=== PATIENT | male | born 1975 | race Caucasian/White ===

== ENCOUNTER 2018-06-08 20:14 | Emergency (ER) | payer OTHER ==
[~2018-06-08] VITALS: Ht 182.9 cm; Wt 83.9 kg
[2018-06-08 20:45] VITALS: BP 157/95
--- NOTE | 2018-06-08 20:46 | NUR ---
ED Nurse Note: Patient presents to ED c/o bleeding in left ear for 3 hours. Patient reports bleeding started after headphone and Q-tip use. Patient AOx4, VSS, ambulatory with steady gait, no s/s of acute distress noted at this time. patient seen by NAYED at bedside.
--- NOTE | 2018-06-08 20:46 | Emergency Room Report ---
History of Present Illness General Chief Complaint: Earache Source: Patient Present Illness HPI Patient uses ear buds at work. When he removed them from the left ear there is some blood. He denies any pain or change in his hearing. He tried using a Q- tip and seem like the bleeding continued. Denies fevers, upper respiratory symptoms including cough, sore throat or ear pain. There is no change in hearing since this happened. There is no vertigo. No headache, nausea, vomiting or rashes. Allergies: Coded Allergies: No Known Allergies (Unverified , 06/08/18) Patient History Past Medical History: see triage record Social History: Reports: smoking Social History Narrative Uses ear buds in his job Reviewed Nursing Documentation: PMH: Agreed; PSxH: Agreed Nursing Documentation-PMH Past Medical History: No Stated History Review of Systems Constitutional: Reports: see HPI ENT: Reports: see HPI Respiratory: Reports: see HPI Gastrointestinal: Reports: see HPI Skin: Reports: see HPI Neurological: Reports: see HPI Hematologic/Lymphatic: Reports: see HPI Physical Exam Vital Signs Date Time Temp Pulse Resp B/P (MAP) Pulse Ox O2 Delivery O2 Flow Rate FiO2 06/08/18 20:28 98.2 58 18 157/95 98 Room Air Sp02 EP Interpretation: reviewed, normal General Appearance: well appearing, no apparent distress, GCS 15 Head: normocephalic, atraumatic Eyes: bilateral eye normal inspection, bilateral eye PERRL ENT: normal pharynx, moist mucus membranes, other - No pinna tenderness, canal is normal aside from having some blood and also the TM on the side is normal. Neck: full range of motion, supple Respiratory: lungs clear, no respiratory distress, speaking full sentences Cardiovascular #1: regular rate, rhythm Cardiovascular #2: 2+ radial (R) Gastrointestinal: normal inspection Musculoskeletal: digits/nails normal, gait/station normal Neurologic: alert, oriented x3, normal gait, grossly normal Psychiatric: mood/affect normal Skin: no rash Medical Decision Making Diagnostic Impression: Primary Impression: Ear canal abrasion Qualified Codes: S00.412A - Abrasion of left ear, initial encounter ER Course Patient presents with bleeding from the left ear canal after cleaning with a Q- tip. Differential includes perforation, otitis externa, ear canal trauma amongst others. There is no change in the hearing and he has no pain. This is consistent with ear canal trauma. Antibiotics are indicated topically. Discussed the treatment plan with patient and he understands. Patient is stable for outpatient observation and treatment. Last Vital Signs Date Time Temp Pulse Resp B/P (MAP) Pulse Ox O2 Delivery O2 Flow Rate FiO2 06/08/18 20:54 98.2 58 18 157/95 98 Room Air Status: unchanged Disposition: HOME, SELF-CARE Condition: Stable Scripts Neomycin/Polymyxin B Sulf/Hc* (CORTISPORIN EAR SOLUTION*) 10 Ml Solution 3 DROP LEFT EAR TID, #10 ML 0 Refills Prov: Bob Larose MD 06/08/18 Bob Larose MD Jun 08, 2018 20:46
[2018-06-08] MEDS ORDERED: CORTISPORIN EAR10 ML LEFT EAR (20:48)
[2018-06-08 20:54] VITALS: BP 157/95
--- NOTE | 2018-06-08 20:54 | NUR ---
ED Nurse Note: Patient cleared for discharge by ERMJerod. Patient AOx4, VSS, ambulatory with steady gait, no s/s of acute distress noted at this time. patient provided with discharge instructions and medication prescriptions. patient verbalized understanding. patient stated he was driving himself home. patient instructed to follow up with PCP in 3 to 5 days. Patient took all personal belongings with him.
== END 2018-06-08 20:54 | disposition home or self-care (01) ==
LOC: EMR 20:46
DX: S00.412A Abrasion of left ear, initial encounter (principal); X58.XXXA Exposure to other specified factors, initial encounter; Y92.9 Unspecified place or not applicable
CPT/HCPCS: 99282